=== PATIENT | female | born 1995 | race Caucasian/White ===

== ENCOUNTER 2016-09-18 13:14 | Emergency (ER) | payer BC ==
[~2016-09-18] VITALS: Ht 172.7 cm; Wt 88.3 kg
[~2016-09-18 13:14] MED LIST: PRENTAB26 PO
[2016-09-18 13:21] VITALS: TEMP 36.9; Ht 172.7 cm; Wt 88.3 kg
[2016-09-18] MEDS ORDERED: SODIUM CHLORIDE 0.9% 1000ML 1,000 ML IV STA (13:27)
[2016-09-18] MEDS ORDERED: ONDANSETRON INJ 2 MG/ML 2 ML VIAL IV STA (13:27)
[2016-09-18] MEDS ORDERED: ONDA4TAB10 SL (13:30)
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
[2016-09-18 13:50] LABS: BASO % 0.1 %; BASO ABS # 0.01 K/uL (0-0.2); COMPLETE YES; EOS % 0.6 %; HEMATOCRIT 39.5 % (37-47); IG% 0.2 %; LYMPH % 22.5 %; LYMPH ABS # 2.38 K/uL (1.2-3.4); MEAN CELL VOLUME 84.6 fL (80-100); MEAN CORPUSCULAR HEMOGLOBIN 30.2 pg (25-34); MEAN CORPUSCULAR HGB CONC 35.7 g/dl (32-36); MEAN PLATELET VOLUME 8.7 fL (7.4-10.4); MONO % 6.4 %; NEUT % 70.2 %; PLATELET COUNT 261 K/uL (130-400); RED BLOOD COUNT 4.67 M/uL (4.2-5.4); WHITE BLOOD COUNT 10.59 K/uL (4.8-10.8)
[2016-09-18 14:09] LABS: ALKALINE PHOSPHATASE 63 U/L (45-117); ALT/SGPT 21 U/L (12-78); AST/SGOT 19 U/L (15-37)
[2016-09-18 14:41] LABS: URINE APPEARANCE CLOUDY (CLEAR); URINE BILIRUBIN NEG (NEG); URINE COLOR YELLOW; URINE EPITHELIAL CELL AUTO >30 /lpf (0-5); URINE NITRITE NEG (NEG); URINE PH 6.5 (4.5-7.5); UROBILINOGEN NEG (NEG)
[2016-09-18 14:44] LABS: MANUAL MICROSCOPIC REQUIRED? NO; REVIEW REQ? YES
[2016-09-18 14:51] LABS: URINE PATH CASTS 0-3 GRANULAR CASTS /lpf (0)
[2016-09-18 15:12] VITALS: BP 133/69; PULSE 78; O2SAT 100
== END 2016-09-18 15:35 | disposition home or self-care (01) ==
LOC: C.EDB 13:16
DX: O99.612 Diseases of the digestive system complicating pregnancy, second trimester (principal); Z3A.13 13 weeks gestation of pregnancy; Z83.3 Family history of diabetes mellitus; Z82.49 Family history of ischemic heart disease and other diseases of the circulatory system

== ENCOUNTER → 2016-10-14 | Outpatient (CLI) | payer BC ==
[~2016-10-14] MED LIST changes: +ONDA4TAB10 SL
[2016-10-14 11:39] LABS: GTGD 50 Grams
[2016-10-15 16:01] LABS: AFP MULTIPLE OF MEDIAN 1.46; AFPTS GESTATIONAL AGE 17.1 WEEKS; AFPTS INSULIN DEP DIABETIC? NO; AFPTS MATERNAL WT 201 LBS; ALPHA-FETOPROTEIN RACE CAUCASIAN=W; HISTORY OF NTD NO; REPEAT SAMPLE? NO
== END | disposition home or self-care (01) ==
LOC: C.LAB1850 09:09
PROVIDERS: ATTEND Obstetrics & Gynecology
DX: Z34.02 Encounter for supervision of normal first pregnancy, second trimester (principal)

== ENCOUNTER → 2016-10-29 | Outpatient (CLI) | payer BC | END | disposition home or self-care (01) | LOC: C.LAB1850 07:47 | PROVIDERS: ATTEND Obstetrics & Gynecology | DX: O28.9 Unspecified abnormal findings on antenatal screening of mother (principal) ==

== ENCOUNTER → 2016-12-30 | Outpatient (CLI) | payer BC ==
[2016-12-30 18:29] LABS: URINE APPEARANCE CLOUDY (CLEAR); URINE BILIRUBIN NEG (NEG); URINE COLOR DK YELLOW; URINE EPITHELIAL CELL AUTO >30 /lpf (0-5); URINE NITRITE NEG (NEG); URINE SPECIFIC GRAVITY 1.026 (1.000-1.030); UROBILINOGEN NEG (NEG)
[2016-12-30 18:39] LABS: MANUAL MICROSCOPIC REQUIRED? NO; REVIEW REQ? YES
== END | disposition home or self-care (01) ==
LOC: C.LABSPEC 17:52
PROVIDERS: ATTEND Obstetrics & Gynecology
DX: Z34.03 Encounter for supervision of normal first pregnancy, third trimester (principal)

== ENCOUNTER → 2017-01-05 | Outpatient (CLI) | payer BC ==
[2017-01-05 10:16] LABS: HEMATOCRIT 36.2 % (37-47)
== END | disposition home or self-care (01) ==
LOC: C.LAB1850 09:02
PROVIDERS: ATTEND Obstetrics & Gynecology
DX: Z34.03 Encounter for supervision of normal first pregnancy, third trimester (principal)

== ENCOUNTER → 2017-02-25 | Outpatient (CLI) | payer BC | END | disposition home or self-care (01) | LOC: C.LABSPEC 13:38 | PROVIDERS: ATTEND Obstetrics & Gynecology | DX: Z34.03 Encounter for supervision of normal first pregnancy, third trimester (principal) ==

== ENCOUNTER 2017-03-13 06:14 | Inpatient (IN) | payer BC ==
[~2017-03-13] VITALS: Ht 160 cm; Wt 104.3 kg
[2017-03-13 07:00] VITALS: Ht 160 cm; Wt 104.3 kg
[2017-03-13] MEDS ORDERED: LACTATED RINGER'S 1000ML 1,000 ML IV PRN (07:00)
[2017-03-13 07:30] LABS: HEMATOCRIT 34.4 % (37-47); MEAN CELL VOLUME 79.4 fL (80-100); MEAN CORPUSCULAR HEMOGLOBIN 26.3 pg (25-34); MEAN CORPUSCULAR HGB CONC 33.1 g/dl (32-36); MEAN PLATELET VOLUME 8.7 fL (7.4-10.4); PLATELET COUNT 286 K/uL (130-400); RED BLOOD COUNT 4.33 M/uL (4.2-5.4); WHITE BLOOD COUNT 11.96 K/uL (4.8-10.8)
[2017-03-13 08:59] LABS: INR 0.9 (0.9-1.1); PROTHROMBIN TIME (PATIENT) 9.5 SECONDS (9.0-12.0)
[2017-03-13 09:10] LABS: ALT/SGPT 16 U/L (12-78); CREATININE 0.65 mg/dl (0.60-1.20); URIC ACID 5.4 mg/dl (2.6-7.2)
[2017-03-13 09:13] LABS: ALKALINE PHOSPHATASE 113 U/L (45-117); AST/SGOT 17 U/L (15-37)
[2017-03-13] MEDS ORDERED: LACTATED RINGER'S 1000ML 500 ML IV PRN ×2 (09:22→11:15)
[2017-03-13] MEDS ORDERED: OXYTOCIN 30 UNITS/500ML NSS IV PRN ×2 (09:30→15:00)
[2017-03-13] MEDS: LACTATED RINGER'S 1000ML 1,000 ML IV SCH ×2 (10:16→11:12)
[2017-03-13] MEDS ORDERED: EpHEDrine SULFATE INJ 50 MG/ML AMP ONE (10:21)
[2017-03-13] MEDS ORDERED: BUPIVACAINE 0.25% 30 ML VIAL ONE (10:21)
[2017-03-13] MEDS ORDERED: FENTANYL 2MCG/ML ROPIV 1.25MG/ML 100ML BAG EPI ONE (10:21)
[2017-03-13] MEDS ORDERED: FENTANYL CITRATE INJ 50 MCG/1 ML 2 ML VIAL ONE (10:22)
[2017-03-13] MEDS ORDERED: FENTANYL 2MCG/ML ROPIV 1.25MG/ML 100ML BAG EPI PRN (11:15)
[2017-03-13] MEDS ORDERED: NALOXONE HCL INJ 1 MG in SODIUM CHLORIDE 0.9% 1000ML 1,000 ML IV PRN (11:15)
[2017-03-13] MEDS ORDERED: NALBUPHINE HCL INJ 10 MG/ML AMP IV PRN (11:15)
[2017-03-13] MEDS ORDERED: NALOXONE HCL INJ 0.4 MG/1 ML VIAL/CARP IV PRN (11:15)
[2017-03-13] MEDS ORDERED: EpHEDrine SULFATE INJ 50 MG/ML AMP IV PRN (11:15)
[2017-03-13] MEDS ORDERED: ONDANSETRON INJ 2 MG/ML 2 ML VIAL IV PRN (11:15)
[2017-03-13] MEDS ORDERED: DiphenhydrAMINE HCL 50 MG/ML VIAL IV PRN (11:15)
[2017-03-13] MEDS ORDERED: SUPERCREAM 0.870 % 15GM JAR EXT PRN (15:00)
[2017-03-13] MEDS ORDERED: ACETAMINOPHEN/CODEINE 300/30MG TAB PO PRN (15:00)
[2017-03-13] MEDS ORDERED: HYDROCORTISONE ACETATE 25 MG SUPP PR PRN (15:00)
[2017-03-13] MEDS ORDERED: ACETAMINOPHEN 325 MG TAB PO PRN (15:00)
[2017-03-13] MEDS ORDERED: BENZOCAINE 20% AER SPR 82.5 GM CAN EXT PRN (15:00)
[2017-03-13] MEDS ORDERED: LANOLIN OINT EXT PRN ×2 (15:00)
--- NOTE | 2017-03-13 15:11 | Vaginal Delivery Summary ---
Vaginal Delivery Summary 22 yo EGA of 38+4 wk presented after ROM. Pt progressed to complete under epidural anesthesia and then began to push, delivering a viable female from the RANDALL presentation. No nuchal cord. Nose and mouth were suctioned, a spontaneous cry was heard, and the was placed onto mother's abdomen for stimulation. Delayed cord clamping was performed at the 30 second jonathan, then double clamped and cut. Cord blood obtained. The placenta was then delivered spontaneously intact with a three-vessel cord. Pitocin was given and the uterus became firm. The uterus and vagina were cleared of all clots and debris. The cervix, vagina, and perineum were inspected and a first degree perineal laceration was noted. The laceration was repaired in standard fashion with 3-O Vicryl. Excellent hemostasis was noted. Sponge, instrument and needle counts were correct 2 at the conclusion of the delivery. The mother and baby recovered well in the room, both in stable and good condition. APGARS were 8 & 9. EBL 200 mL. Danish Sheppard MD, PGY1
--- NOTE | 2017-03-13 15:24 | Anesthesia Procedure Note ---
Anesthesia Epidural Removal Nt Date & Time Mar 13, 2017 at 15:24 Vital Signs Pain Intensity: 0.0 Notes Mental Status: alert / awake / arousable, participated in evaluation Nausea / Vomiting: adequately controlled Pain: adequately controlled Airway Patency, RR, SpO2: stable & adequate BP & HR: stable & adequate Hydration State: stable & adequate Neuraxial Anesthesia: was administered Anesthetic Complications: no major complications apparent, pt satisfied with anesthetic care Epidural: removed without complications, with tip intact
[2017-03-13 17:25] VITALS: BP 150/75; PULSE 101; TEMP 36.7
[2017-03-13 19:00] VITALS: BP 144/90; PULSE 105; TEMP 36.5
[2017-03-13] MEDS: DOCUSATE SODIUM 100 MG CAP PO SCH (19:52)
[2017-03-13] MEDS: IBUPROFEN 600 MG TAB PO PRN (23:17)
[2017-03-13 23:45] VITALS: BP 150/90; PULSE 72; TEMP 36.6
[2017-03-14 04:00] VITALS: BP 148/90; PULSE 80; TEMP 36.9
[2017-03-14 06:38] LABS: HEMATOCRIT 32.2 % (37-47)
--- NOTE | 2017-03-14 06:38 | OB/GYN Progress Note ---
PEST CONTROL SERVICE TECHNICIAN Progress Note Date of Service Mar 14, 2017. Subjective conversation w/ patient, physical exam, chart review, lab review Ambulation: limited ambulation (to bathroom) Voiding: no voiding problems Passing Gas: Yes (and (+) BM) Diet Tolerance: Regular Diet Lochia: Small Feeding Type: Breast Feeding Pain: Says minimal low abd cramping Review of Systems Constitutional: No fever, No chills Respiratory: No cough, No shortness of breath Cardiac: No chest pain Abdomen: No nausea, No vomiting, No diarrhea Female : No dysuria Objective Vital Signs Date Time Temp Pulse Resp B/P (MAP) Pulse Ox O2 Delivery O2 Flow Rate FiO2 03/14/17 04:00 36.9 80 18 148/90 (109) Room Air 03/13/17 23:45 36.6 72 18 150/90 (110) Room Air 03/13/17 23:45 Room Air 03/13/17 19:00 36.5 105 18 144/90 (108) Room Air 03/13/17 17:25 Room Air 03/13/17 17:25 36.7 101 18 150/75 (100) Physical Exam General Appearance: WELL-APPEARING, WD/WN, NO APPARENT DISTRESS Respiratory/Chest: lungs clear, normal breath sounds Cardiovascular: regular rate, rhythm Abdomen: normal bowel sounds, non tender, soft Fundus: Firm, Non-Tender, Relation to Umbilicus (approx one down) Extremities: normal range of motion, non-tender, no pedal edema, no calf tenderness Laboratory Results Last 24 Hours Test 03/13/17 07:18 03/13/17 08:34 03/14/17 06:16 White Blood Count 11.96 K/uL Red Blood Count 4.33 M/uL Hemoglobin 11.4 g/dL Hematocrit 34.4 % Mean Corpuscular Volume 79.4 fL Mean Corpuscular Hemoglobin 26.3 pg Mean Corpuscular Hemoglobin Concent 33.1 g/dl RDW Standard Deviation 38.7 fL RDW Coefficient of Variation 13.4 % Platelet Count 286 K/uL Mean Platelet Volume 8.7 fL Prothrombin Time 9.5 SECONDS Prothromb Time International Ratio 0.9 Activated Partial Thromboplast Time 25.4 SECONDS Partial Thromboplastin Ratio 1.0 Creatinine 0.65 mg/dl Est Creatinine Clear Calc Drug Dose 156.8 ml/min Estimated GFR () 146.1 Estimated GFR (Non- 126.0 Uric Acid 5.4 mg/dl Total Bilirubin 0.3 mg/dl Direct Bilirubin < 0.1 mg/dl Aspartate Amino Transf (AST/SGOT) 17 U/L Alanine Aminotransferase (ALT/SGPT) 16 U/L Alkaline Phosphatase 113 U/L Total Protein 6.7 gm/dl Albumin 2.6 gm/dl Assessment and Plan Post- Day Number: 1 Continue Routine Care: Resident Physician Supervision Note: I interviewed and examined the patient. Discussed with Dr. Sheppard and agree with findings and plan as documented in the note. Any exceptions or clarifications are listed here: [None] Documented By: Joy Caceres 22yo s/p , now PPD #1. - Blood type A pos. GBS negative. Rubella immune. - Vital signs reviewed. Elevated SBP. No GABRIEL, vision c/o, or gross neuro deficits per pt. Will monitor. Discussed need for possible close f/u with pt. - Pain controlled with PO motrin. - No leg swelling or tenderness on calf palpation. Encourage ambulation. - Encourage breast feeding. - Hemoglobin prepartum 11.4, post-delivery pending this AM. Vaginal bleeding improving. Continue to monitor clinically. - Continue routine post-vaginal delivery care. - Pt agreed with above plan, all current questions answered. Danish Sheppard MD, PGY1 Pot [employer] Tracking Resident Involvement: Resident Care Provided Care Provided: OB Delivery (morning rounds)
[2017-03-14] MEDS: PRENATAL VITAMIN TAB PO SCH (07:38)
[2017-03-14] MEDS: DOCUSATE SODIUM 100 MG CAP PO SCH ×2 (07:38→20:00)
[2017-03-14] MEDS: IBUPROFEN 600 MG TAB PO PRN ×2 (07:39→12:24)
[2017-03-14] MEDS ORDERED: PRENATAL VITAMIN TAB PO SCH (08:00)
--- NOTE | 2017-03-14 08:08 | DELIVERY SUMMARY ---
DATE OF OPERATION: 03/13/2017 The patient is a 22-year-old G1, P0 White female, EDC of 03/23/2017, who presented with spontaneous rupture of membranes at approximately 04:30. She had irregular contractions and required Pitocin augmentation to 3 milliunits. She received effective epidural analgesia, reached full dilation and pushed effectively over intact perineum for delivery of a viable female . Mouth and nasopharynx were suctioned on the perineum. The rest of the was delivered easily and was placed on the mother's abdomen for further drying and attention. Cord was then clamped and cut. The was moving all 4 limbs and had vigorous crying. The placenta was expressed intact with a 3-vessel cord. A first-degree perineal laceration was repaired with 3-0 chromic in the usual fashion. Estimated blood loss was 200 mL. Mother and infant were doing well after delivery. I attest to the content of the Intraoperative Record and any orders documented therein. Any exception s are noted below.
[2017-03-14 08:40] VITALS: BP 132/85; PULSE 96; TEMP 36.8
[2017-03-14 12:15] VITALS: BP 136/90; PULSE 68; TEMP 36.7
[2017-03-14 16:00] VITALS: BP 149/84; PULSE 100; TEMP 36.9
[2017-03-14 18:30] VITALS: BP 149/86
[2017-03-14] MEDS ORDERED: BISACODYL 5 MG TABEC PO SCH (20:00)
[2017-03-15] MEDS: IBUPROFEN 600 MG TAB PO PRN (00:02)
[2017-03-15 00:30] VITALS: BP 128/83; PULSE 92; TEMP 36.5
[2017-03-15] MEDS ORDERED: BISACODYL 10 MG SUPP PR PRN (07:00)
[2017-03-15 07:40] VITALS: BP 135/86; PULSE 94; TEMP 36.6
--- NOTE | 2017-03-15 07:47 | OB/GYN Progress Note ---
BASS SINGER Progress Note Date of Service Mar 15, 2017. Subjective conversation w/ patient, physical exam Ambulation: ambulating normally Feeding Type: Breast Feeding Objective Vital Signs Date Time Temp Pulse Resp B/P (MAP) Pulse Ox O2 Delivery O2 Flow Rate FiO2 03/15/17 00:30 Room Air 03/15/17 00:30 36.5 92 18 128/83 (98) Room Air 03/14/17 18:30 149/86 (107) 03/14/17 16:00 36.9 100 20 149/84 (105) Room Air 03/14/17 16:00 Room Air 03/14/17 12:15 36.7 68 20 136/90 (105) Room Air 03/14/17 08:40 Room Air 03/14/17 08:40 36.8 96 20 132/85 (101) Room Air Physical Exam General Appearance: WELL-APPEARING, NO APPARENT DISTRESS Fundus: Firm, Non-Tender Extremities: no calf tenderness Assessment and Plan Post- Day Number: 2 Continue Routine Care: - doing well - desires d/c - instructions given - f/u in 6 weeks
--- NOTE | 2017-03-15 07:49 | Discharge Instructions ---
Discharge Instructions Date of Service Mar 15, 2017. Admission Reason for Admission: Preg With 38 Completed Weeks Gestation Discharge Discharge Diagnosis / Problem: same Discharge Goals Goal(s): Routine recovery after delivery Medications Continue Dispensed Medications: dermaplast Activity Recommendations Activity Limitations: as noted below . Instructions / Follow-Up Instructions / Follow-Up ACTIVITY RECOMMENDATIONS: * Gradual return to full activity over the next 2-3 weeks. * No lifting - nothing heavier than baby over the next 2-3 weeks. * Do not engage in vigorous exercise, sexual activity or sports until cleared by your physician. * Do not drive or operate any motorized equipment until cleared by your physician. * You may shower/bathe daily. MEDICATIONS: For discomfort or pain, you may use Acetaminophen (Tylenol), Ibuprofen (Advil), or Naproxen (Aleve) following the package directions. For constipation you may use Colace following the package directions. BREAST CARE: If you are not breast feeding: * Wear a supportive bra 24 hours a day for one to two weeks. * Avoid stimulating your breasts and nipples as much as possible during the first few weeks after delivery. * When taking a shower, have the warm water hit your back, not breasts. * When your breasts feel full, apply ice packs. Usually three to four times a day helps ease the discomfort. * Take a mild pain medication (Tylenol / Motrin) when you are uncomfortable. If breast feeding: * Use breast milk to lubricate nipples. Lansinoh cream may be used for sore nipples. You do not need to remove cream prior to breast feeding. If using a different brand of cream, check the label for directions regarding removal of cream prior to nursing. * Wear a supportive bra. * If having problems with breasts or breast feeding, call a safety and health consultant or your health care provider. EPISIOTOMY CARE: After delivery, if you have an episiotomy (stitches), the following steps will ease discomfort and aid healing. * For the first 24 hours after delivery, place ice packs next to your episiotomy to help reduce swelling. * After the first 24 hour-period, sitz baths, either portable or in the tub, are suggested. A shower with a shower arm sprayed over the episiotomy may be comforting. * Dulce Maria care should be done after each voiding and bowel movement. Squirt warm water from a plastic bottle over the perineum (region of the body between the anus and urinary opening) and pat dry. * Use Dermoplast to ease discomfort. Shake container. [place] directly over the episiotomy. Place a Tucks on a clean sanitary pad next to your episiotomy. SPECIAL CARE INSTRUCTIONS: When you are discharged from the hospital, it is important for you to follow the instructions listed below: * During the first week at home, you should be able to care for yourself and your baby. In addition, the usual light household activities are encouraged. * Limit your activities to the way you feel. Do not try to clean the house or move furniture. Be sensible. * If you actively engage in sports and have done so up until the time of your delivery, you may resume these activities as soon as you feel able. This may take up to one month or even longer. Use good judgment. * Continue to take your vitamins for at least six weeks after the of your baby. * Your diet need not be limited unless you were on a special diet before your delivery. Breast-feeding mothers need around 2500 calories per day and at least 64-80 ounces of fluid per day (8 to 10 glasses). * You should eat foods from the four major food groups. Crash diets or fad diets are to be avoided. Eating lean meats, fresh fruits and vegetables, low-fat dairy products, high fiber foods and a regular exercise program, will help you get back to your pre- weight without putting your health at risk. * Constipation is sometimes a problem after delivery. Take a mild laxative as needed. If breast feeding, Milk of Magnesia is acceptable to use. You may use a suppository or Fleets enema if no episiotomy. * A daily shower or tub bath is suggested. Be sure to thoroughly and gently dry the perineum. * A bloody vaginal discharge will usually continue until around four weeks post . A small amount of bleeding may continue for as long as six weeks. Vaginal discharge changes from the bright red bleeding after delivery to pink then brownish and finally yellowish-pink before becoming white and disappearing. * Bleeding may increase with activity. Your first period may come in 4-8 weeks. If you are breast feeding, your period may be delayed even longer. * [place] (sex) can begin whenever both you and your partner feel comfortable and do not have any form of genital infection. It is recommended that you wait at least six weeks for internal and external healing to occur. If you have questions, please talk to your health care practitioner. A condom should be used to prevent infection and . * Foreplay, gentle intercourse and lubrication is very important the first several times to prevent pain. A water-based lubricant such as K-Y jelly or Astroglide may be used. * If you have RH negative blood and your baby is RH positive, you will receive RHOGAM by injection prior to discharge. The nurse will give you a card to keep with you that has the date and place that you received RHOGAM after delivery. * During your care, you had a Rubella screen done to check for the presence of rubella antibodies in your blood. If your test was negative, you will receive a Rubella vaccine prior to discharge. This vaccine may cause a fever, soreness at the injection site and flu-like symptoms. If these symptoms persist, notify your health care practitioner. is not advised for one month after a Rubella vaccine. * Verbalizes understanding of car seat law as reviewed with patient nursing. * Car Seat hand-out given and reviewed with patient by nursing. * Shaken baby information reviewed with patient by nursing. Call you doctor if: * Heavy bleeding (saturating several pads an hour) or passing clots the size of your fist. * A fever >101 degrees F (38.3 degrees C) on two occasions four hours apart and /or chills. * Unusual pain in the pelvic or vaginal areas. * "Baby Blues" lasting longer than two weeks. If you have any questions or concerns, call your health care practitioner at . FOLLOW UP VISIT: * Please call the office at to schedule a 6 week examination. It is important you keep this appointment. It is important for you to make arrangements for either yearly or twice yearly check-ups thereafter. Current Hospital Diet Patient's current hospital diet: Regular Diet Discharge Diet Recommended Diet: Regular OB Diet Procedures Procedures Performed: Vaginal Deivery Pending Studies Studies pending at discharge: no Medical Emergencies . Who to Call and When: Medical Emergencies: If at any time you feel your situation is an emergency, please call 911 immediately. . Non-Emergent Contact Non-Emergency issues call your: It Architect Call Non-Emergent contact if: temperature is above 100.5 . . "Provider Documentation" section prepared by Gary Marroquin. . VTE Core Measure Inpt VTE Proph given/why not?: Treatment not indicated
[2017-03-15] MEDS: PRENATAL VITAMIN TAB PO SCH (08:20)
[2017-03-15] MEDS: DOCUSATE SODIUM 100 MG CAP PO SCH (08:20)
[2017-03-15 11:00] VITALS: BP_DIAS 86; PULSE 94; TEMP 36.6
== END 2017-03-15 11:30 | disposition home or self-care (01) | DRG 775 ==
LOC: C.OPB 06:14 → C.LD 06:14 → C.OPB 07:02 → C.LD 07:02 → C.OBG 17:28 → EDSTATUS 03-23 06:06
PROVIDERS: ADMIT Obstetrics & Gynecology; ATTEND Obstetrics & Gynecology
PROC: 0HQ9XZZ Repair Perineum Skin, External Approach (ICD-10-PCS; principal; 2017-03-13)
PROC: 10E0XZZ Delivery of Products of Conception, External Approach (ICD-10-PCS; principal; 2017-03-13)
DX: O42.02 Full-term premature rupture of membranes, onset of labor within 24 hours of rupture (principal); Z68.41 Body mass index [BMI] 40.0-44.9, adult; Z37.0 Single live birth; O99.214 Obesity complicating childbirth; O70.0 First degree perineal laceration during delivery; O34.40 Maternal care for other abnormalities of cervix, unspecified trimester; R87.612 Low grade squamous intraepithelial lesion on cytologic smear of cervix (LGSIL); E66.9 Obesity, unspecified; Z3A.38 38 weeks gestation of pregnancy

== ENCOUNTER → 2017-04-20 | Outpatient (CLI) | payer BC ==
[~2017-04-20] MED LIST changes: -ONDA4TAB10 SL
== END | disposition home or self-care (01) ==
LOC: C.PAPS 16:47
PROVIDERS: ATTEND Obstetrics & Gynecology
DX: Z01.411 Encounter for gynecological examination (general) (routine) with abnormal findings (principal); R87.610 Atypical squamous cells of undetermined significance on cytologic smear of cervix (ASC-US)